=== PATIENT | female | born 1985 | race Caucasian/White ===

== ENCOUNTER 2017-03-28 18:43 | Emergency (ER) | payer BC ==
--- OUTSIDE RECORDS SUMMARY | 2017-03-28 18:49 | XMS REPORT ---
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 Rate 12 /min Height 68.75 inches 5'8.75" Weight 224.00 lb BMI (Body Mass Index) 33.3 kg/m2 Results Test Date Test Result H/L Range Note CBC Auto Diff 05/02/2016 White Blood Count 5.1 10^3/uL 3.5-10.8 Red Blood Count 4.61 10^6/uL 4.0-5.4 Hemoglobin 12.3 g/dL 12.0-16.0 Hematocrit 38 % 35-47 Mean Corpuscular Volume 82 fL 80-97 Mean Corpuscular Hemoglobin 27 pg 27-31 Mean Corpuscular HGB Conc 33 g/dL 31-36 Red Cell Distribution Width 18 % High 10.5-15 Platelet Count 148 10^3/uL Low 150-450 Mean Platelet Volume 10 um3 7.4-10.4 Abs Neutrophils 2.5 10^3/uL 1.5-7.7 Abs Lymphocytes 1.6 10^3/uL 1.0-4.8 Abs Monocytes 0.7 10^3/uL 0-0.8 Abs Eosinophils 0.2 10^3/uL 0-0.6 Abs Basophils 0 10^3/uL 0-0.2 Abs Nucleated RBC 0 10^3/uL Granulocyte % 50.1 % 38-83 Lymphocyte % 32.5 % 25-47 Monocyte % 13.5 % High 1-9 Eosinophil % 3.5 % 0-6 Basophil % 0.4 % 0-2 Nucleated Red Blood Cells % 0.1 Basic Metabolic Panel 05/02/2016 Sodium 137 mmol/L 133-145 Potassium 3.9 mmol/L 3.5-5.0 Chloride 104 mmol/L 101-111 Co2 Carbon Dioxide 23 mmol/L 22-32 Anion Gap 10 mmol/L 2-11 Glucose 82 mg/dL 70-100 Blood Urea Nitrogen 11 mg/dL 6-24 Creatinine 0.67 mg/dL 0.51-0.95 BUN/Creatinine Ratio 16.4 8-20 Calcium 8.8 mg/dL 8.6-10.3 Egfr Non- 101.4 >60 Egfr 130.4 >60 1 CBC No Diff 03/07/2016 White Blood Count 8.3 10^3/uL 3.5-10.8 2 Red Blood Count 4.63 10^6/uL 4.0-5.4 2 Hemoglobin 12.4 g/dL 12.0-16.0 2 Hematocrit 38 % 35-47 2 Mean Corpuscular Volume 82 fL 80-97 2 Mean Corpuscular Hemoglobin 27 pg 27-31 2 Mean Corpuscular HGB Conc 33 g/dL 31-36 2 Red Cell Distribution Width 14 % 10.5-15 2 Platelet Count 244 10^3/uL 150-450 2 Mean Platelet Volume 9 um3 7.4-10.4 2 Basic Metabolic Panel 03/07/2016 Sodium 134 mmol/L 133-145 2 Potassium 4.2 mmol/L 3.5-5.0 2 Chloride 99 mmol/L Low 101-111 2 Co2 Carbon Dioxide 27 mmol/L 22-32 2 Anion Gap 8 mmol/L 2-11 2 Glucose 83 mg/dL 70-100 2 Blood Urea Nitrogen 16 mg/dL 6-24 2 Creatinine 0.78 mg/dL 0.51-0.95 2 BUN/Creatinine Ratio 20.5 High 8-20 2 Calcium 9.6 mg/dL 8.6-10.3 2 Egfr Non- 85.1 >60 2 Egfr 109.4 >60 2, 3 Laboratory test finding 01/23/2016 Clotest SEE RESULT BELOW 4 CBC Electronic (Fma) 02/14/2013 WBC 5.9 3.6-9.6 RBC 4.11 3.90-5.70 Hemoglobin (Fma/CMC/CTX) 12.1 g/dL 12.1 - 17.2 Hematocrit (Fma/CMC/CTX) 36.4 % 36.1 - 50.3 Platelets 202 10^3/ul 150-400 Lymph% 30.5 20.5-51.1 Mixed% 4.1 Neutrophils % 65.4 Mean Corpuscular Vol 88 82.2-97.4 Mean Corpuscular Hemoglobin 29.5 27.6-33.3 Mean Corpuscular Hemo Concen 33.4 32.0-36.0 RDW 14.0 High 11.6-13.7 Mean Platelet Volume 7.2 6.5-11.0 Ebv Acute Infection Abs 02/14/2013 Ebv Ab Vca, IgM <0.2 AI 0.0-0.8 5 Ebv Early Antigen Ab, IgG 4.3 AI High 0.0-0.8 6 Ebv Ab Vca, IgG >8.0 AI High 0.0-0.8 7 Ebv Nuclear Antigen Ab, IgG >8.0 AI High 0.0-0.8 8 Interpretation: SEE NOTE 9 CMV Abs Igg/Igm 02/14/2013 CMV Ab, IgG (Cytomegalovirus) <0.9 index 0.0-0.8 10 CMV Ab, IgM Cytomegalovirus <0.9 index 0.0-0.8 11 Lyme Igg/M W/RFX West 02/14/2013 Lyme IgG/IgM Ab <0.91 index 0.00- 0.90 12 Lyme Disease Ab, Quant, IgM <0.91 index 0.00-0.90 13 Laboratory test finding 02/14/2013 B12 982 pg/mL 230-1050 Free T4 0.87 ng/dL 0.75-1.54 Free T3 2.55 pg/mL 2.00-4.90 Iron 49 g/dL Low 60-150 14 TSH 3.52 mIU/L 0.50-6.00 Comprehensive Metabolic Prof 02/14/2013 Albumin 4.2 g/dL 3.8-5.5 Alk. Phos. 74 U/L 30-110 Alt (SGPT) 24 U/L 7-35 Ast (Sgot) 24 U/L 5-34 BUN 18 mg/dL 6-26 Calcium 9.0 mg/dL 8.6-10.2 Chloride 100 mEq/L 94-112 Creatinine 0.9 mg/dL 0.6-1.4 Carbon Dioxide 26 mEq/L 21-32 Glucose 96 mg/dL 70-105 Sodium 138 mEq/L 134-149 Total Bilirubin 0.2 mg/dL 0.2-1.3 Total Protein 6.8 g/dL 6.3-8.1 Potassium 4.4 mEq/L 3.6-5.5 Globulin 2.5 g/dL 2.0-4.8 A/G Ratio 1.7 Calc 0.6-2.3 BUN/Creat Ratio 21.4 Calc 8.0-36.0 Ua - Non Micro (Fma) 12/06/2011 Appearance CLEAR Color YELLOW Glucose NEG Bilirubin NEG Ketones NEG SP Grav 1.020 Blood NEG PH 8.5 Protein NEG Urobil 0.2 Nitrite NEG Leukocytes (Fma/CMC/Centrex) NEG Laboratory test finding 10/29/2011 Monospot (Fma/Centrex) neg Laboratory test finding 10/27/2011 Quickstrep negative Negative Throat - Beta Strep Fma negative@48hrs Helico Pylori 08/14/2011 M <SEE 15 Antigen- Stool NOTE> Celiac Disease 08/03/2011 Deamidated Gliadin 7 units 0-19 16 Comp PNL Abs, IgA Deamidated Gliadin Abs, IgG 2 units 0-19 17 t-Transglutaminase (tTG) IgA <2 U/mL 0-3 18 t-Transglutaminase (tTG) IgG <2 U/mL 0-5 19 Endomysial Antibody IgA Negative Negative Immunoglobulin A, Qn, Serum 320 mg/dL 70-400 Laboratory test finding 08/03/2011 Vitamin D, 25 Oh 59.5 ng/mL 30.0- 100.0 20 Laboratory test finding 08/03/2011 TSH 1.88 mIU/L 0.50-6.00 Comprehensive Metabolic Prof 07/23/2011 Albumin 4.7 g/dL 3.8-5.5 Alk. Phos. 89 U/L 30-110 Alt (SGPT) 24 U/L 7-35 Ast (Sgot) 23 U/L 5-34 BUN 13 mg/dL 6-26 Calcium 9.1 mg/dL 8.6-10.2 Chloride 100 mEq/L 94-112 Creatinine 0.8 mg/dL 0.6-1.4 Carbon Dioxide 25 mEq/L 21-32 Glucose 94 mg/dL 70-105 Sodium 138 mEq/L 134-149 Total Bilirubin 0.6 mg/dL 0.2-1.3 Total Protein 7.1 g/dL 6.3-8.1 Potassium 3.9 mEq/L 3.6-5.5 Globulin 2.4 g/dL 2.0-4.8 A/G Ratio 2.0 Calc 0.6-2.2 BUN/Creat Ratio 16.6 Calc 8.0-36.0 Laboratory test finding 07/23/2011 Amylase 50 U/L 20-105 Laboratory test finding 07/23/2011 Sed Rate (Fma/CMC/Centrex) 2MM CBC Electronic (a) 07/23/2011 WBC 5.8 3.6-9.6 RBC 4.35 3.90-5.70 Hemoglobin (Fma/CMC/CTX) 12.8 g/dL 12.1 - 17.2 Hematocrit (Fma/CMC/CTX) 40.8 % 36.1 - 50.3 Platelets 337 10^3/ul 150-400 Lymph% 29.1 20.5-51.1 Mixed% 4.9 Neutrophils % 66.0 Mean Corpuscular Vol 94 82.2-97.4 Mean Corpuscular Hemoglobin 29.5 27.6-33.3 Mean Corpuscular Hemo Concen 31.5 Low 32.0-36.0 RDW 12.1 11.6-13.7 Mean Platelet Volume 6.9 6.5-11.0 Laboratory test finding 07/23/2011 Lipase 20 U/L 1-64 21 Throat-Beta Strept 10/01/2010 Throat-Beta Strep NF 22 Culture Laboratory test finding 03/13/2010 Urine (HCG) NEG Comprehensive Metabolic Prof 03/03/2010 Albumin 4.7 g/dL 3.8-5.5 Alk. Phos. 60 U/L 30-110 Alt (SGPT) 28 U/L 7-35 Ast (Sgot) 23 U/L 5-34 BUN 13 mg/dL 6-26 Calcium 9.7 mg/dL 8.6-10.2 Chloride 101 mEq/L 94-112 Creatinine 0.7 mg/dL 0.6-1.4 Carbon Dioxide 28 mEq/L 21-32 Glucose 95 mg/dL 70-105 Sodium 140 mEq/L 134-149 Total Bilirubin 0.6 mg/dL 0.2-1.3 Total Protein 7.3 g/dL 6.3-8.1 Potassium 4.3 mEq/L 3.6-5.5 Globulin 2.6 g/dL 2.0-4.8 A/G Ratio 1.8 Calc 0.6-2.2 BUN/Creat Ratio 18.5 Calc 8.0-36.0 Urine (Fma) 02/06/2010 SP Grav 1.015 Urine, (Fma/CMC/CTX) NEGATIVE Comprehensive Metabolic Prof 01/31/2010 Albumin 4.2 g/dL 3.8-5.5 Alk. Phos. 47 U/L 30-110 Alt (SGPT) 46 U/L High 7-35 Ast (Sgot) 35 U/L High 5-34 BUN 14 mg/dL 6-26 Calcium 9.1 mg/dL 8.6-10.2 Chloride 99 mEq/L 94-112 Creatinine 0.8 mg/dL 0.6-1.4 Carbon Dioxide 26 mEq/L 21-32 Glucose 105 mg/dL 70-105 Sodium 139 mEq/L 134-149 Total Bilirubin 0.6 mg/dL 0.2-1.3 Total Protein 6.8 g/dL 6.3-8.1 Potassium 4.1 mEq/L 3.6-5.5 Globulin 2.6 g/dL 2.0-4.8 A/G Ratio 1.6 Calc 0.6-2.2 BUN/Creat Ratio 17.2 Calc 8.0-36.0 CBC ([facility]) 01/31/2010 WBC 5.5 3.6-9.6 RBC 4.28 3.90-5.70 Hemoglobin (Fma/CMC/CTX) 12.9 g/dL 12.1 - 17.2 Hematocrit (Fma/CMC/CTX) 38.2 % 36.1 - 50.3 Platelets 177 10^3/ul 150-400 Lymph% 28.6 20.5-51.1 Mixed% 4.5 Neutrophils % 66.9 Mean Corpuscular Vol 89 82.2-97.4 Mean Corpuscular Hemoglobin 30.1 27.6-33.3 Mean Corpuscular Hemo Concen 33.7 33.0-36.0 RDW 12.2 11.6-13.7 Mean Platelet Volume 7.8 7.4-10.4 Ua - Non Micro (a) 01/31/2010 Appearance CLEAR Color YELLOW Glucose NEG Bilirubin NEG Ketones NEG SP Grav 1.015 Blood NEG PH 7.5 Protein NEG Urobil 0.2 E.U./dL Nitrite NEG Leukocytes (Fma/CMC/Centrex) NEG GC/Chlamydia Probe Or Urine(Ce 01/31/2010 Chlamydia Amplified Probe NEGATIVE GC Amplified Probe NEGATIVE Laboratory test finding 01/17/2010 Urine Culture No significant g <SEE 23 NOTE> Ua - Micro (a) 01/17/2010 Appearance CLEAR Color YELLOW Glucose, Urine (Fma/CMC/CTX) NEG Bilirubin NEG Ketones 15MG/DL SP Grav 1.020 Blood NEG PH 6.5 Protein NEG Urobil 0.2 Nitrite NEG Leukocytes (Fma/CMC/Centrex) NEG Hyaline - /Lpf Granular - /Lpf WBC (Fma,Centrex) 0-1 RBC 0-1 Mucus (Fma/CBC/Centrex) - /Lpf Epith RARE /Lpf Bacteria - /Hpf Amorphous (Fma/CMC/Centrex) - /Lpf Crystals, Fluid (Fma/CMC/CTX) - Z#Comments - Urinalysis 11/25/2009 Ua Color YELLOW Yellow Appearance-Urine CLEAR Clear Specific [place]-Ur 1.019 1.010-1.030 Esterase-Urine NEGATIVE Negative Nitrite NEGATIVE Negative Qaqcgkqcxyqn-Ah-SAV NEGATIVE Negative Protein-Urine NEGATIVE Negative PH-Urine 6.5 5-9 Blood-Urine NEGATIVE Negative Ketones-Urine NEGATIVE Negative Bilirubin-Ur NEGATIVE Negative Glucose-Urine NEGATIVE Negative Laboratory test finding 11/25/2009 Erythrocyte Sed Rate 14 MM/HR 0-15 CBC With Electronic Diff 11/25/2009 White Blood Count 9.6 CUMM 4.8-10.8 Red Cell Count 4.23 CUMM 4.2-5.4 Hemoglobin 13.2 g/dL 12.0-16.0 Hematocrit 38 % 35-47 Mean Corpuscular Volume 90 um3 79-97 Mean Corpuscular Hemoglob 31 pg 27-31 Mean Corpuscular HGB Cone 35 g/dL 32-36 Redcell Distribution WDTH 13 % 10.5-15 Platelet Count 208 CUMM 150-450 Mean Platelet Volume 7.1 um3 Low 7.4-10.4 Gran % 69.1 % 38-83 Lymph % 23.6 % Low 25-47 Mononuclear % 5.3 % 1-9 Eosinophil % 0.7 % 0-6 Basophil % 1.3 % 0-2 Abs Lymphs 2.3 1.0-4.8 Abs Mononuclear 0.5 0-0.8 Absolute Neutrophil Count 6.6 1.5-7.7 Abs Eosinophils 0.1 0-0.6 Abs Basophils 0.1 0-0.2 Laboratory test finding 11/25/2009 C Reactive Protein 0.7 mg/dL High Less Than 0.5 Comp Metabolic Panel 11/25/2009 Sodium 135 mmol/L 135-145 Potassium 3.8 mmol/L 3.5-5.0 Chloride 105 mmol/L 101-111 Co2 (Carbon Dioxide) 26.0 mmol/L 22-32 Anion Gap 4.0 mmol/L 2-11 24 Glucose 95 mg/dL 70-100 25 BUN 17 mg/dL 6-24 Creatinine 0.61 mg/dL 0.50-1.40 One Over Creatinine 1.60 BUN/Creatinine Ratio 27.9 High 8-20 Calcium 8.6 mg/dL 8.1-9.9 26 Total Protein 7.1 GM/DL 6.2-8.1 Albumin 3.8 GM/DL 3.6-5.4 Globulin 3.3 GM/DL 2-4 Albumin/Globulin Ratio 1.2 1-3 Bilirubin Total 0.6 mg/dL 0.4-1.5 27 Alkaline Phosphatase 53 U/L 30-110 Alt (SGPT) 21 U/L 14-54 Ast (Sgot) 22 U/L 12-42 eGFR Non- 126.0 > 60 eGFR 152.5 > 60 28 Laboratory test finding 11/25/2009 PTT (Aptt) 27.8 25.15-38.53 29 Protime 11/25/2009 Inr 0.96 0.82-1.17 30 Protime 11.3 SEC 10.2-14.8 31 Laboratory test finding 11/25/2009 (HCG) Serum NEGATIVE Negative 32 (HCG) Urine 11/22/2009 Specific [place] 1.018 1.010-1.030 33 Urine NEGATIVE Negative 33, 34 Laboratory test finding 11/03/2009 Free T4 1.21 ng/dL 0.75-1.54 TSH 1.16 mIU/L 0.50-6.00 Comprehensive Metabolic Prof 11/03/2009 Albumin 4.4 g/dL 3.8-5.5 Alk. Phos. 53 U/L 30-110 Alt (SGPT) 25 U/L 7-35 Ast (Sgot) 19 U/L 5-34 BUN 15 mg/dL 6-26 Calcium 9.0 mg/dL 8.6-10.2 Chloride 101 mEq/L 94-112 Creatinine 0.7 mg/dL 0.6-1.4 Carbon Dioxide 24 mEq/L 21-32 Glucose 78 mg/dL 70-105 Sodium 141 mEq/L 134-149 Total Bilirubin 0.4 mg/dL 0.2-1.3 Total Protein 7.0 g/dL 6.3-8.1 Potassium 3.9 mEq/L 3.6-5.5 Globulin 2.6 g/dL 2.0-4.8 A/G Ratio 1.7 Calc 0.6-2.2 BUN/Creat Ratio 21.1 Calc 8.0-36.0 Laboratory test finding 05/02/2009 , Serum NEG Laboratory test finding 05/02/2009 Prolactin 10.2 ng/ml 35, 36 Laboratory test finding 05/02/2009 TSH 2.52 mIU/L 0.50-6.00 Basic Metabolic Profile 05/02/2009 BUN 16 mg/dL 6-26 Calcium 8.7 mg/dL 8.6-10.2 Chloride 105 mEq/L 94-112 Creatinine 0.9 mg/dL 0.6-1.4 Carbon Dioxide 27 mEq/L 21-32 Glucose 78 mg/dL 70-105 Sodium 140 mEq/L 134-149 Potassium 4.7 mEq/L 3.6-5.5 BUN/Creat Ratio 18.8 Calc 8.0-36.0 Ua - Non Micro (Fma) 12/17/2008 Appearance CLEAR Color YELLOW Glucose - Bilirubin - Ketones TRACE SP Grav 1.025 Blood - PH 6.0 Protein - Urobil 0.2 Nitrite - Leukocytes (Fma/CMC/Centrex) - 1 Because ethnic data is not always readily available, this report includes an eGFR for both -Americans and non- Americans. The National Kidney Disease Education Program (NKDEP) does not endorse the use of the MDRD equation for patients that are not between the ages of 18 and 70, are , have extremes of body size, muscle mass, or nutritional status, or are non- or non-. According to the National Kidney Foundation, irrespective of diagnosis, the stage of the disease is based on the level of kidney function: Stage Description GFR(mL/min/1.73 m(2)) 1 Kidney damage with normal or decreased GFR 90 2 Kidney damage with mild decrease in GFR 60-89 3 Moderate decrease in GFR 30-59 4 Severe decrease in GFR 15-29 5 Kidney failure <15 (or dialysis) 2 AA 03/20 3 Because ethnic data is not always readily available, this report includes an eGFR for both -Americans and non- Americans. The National Kidney Disease Education Program (NKDEP) does not endorse the use of the MDRD equation for patients that are not between the ages of 18 and 70, are , have extremes of body size, muscle mass, or nutritional status, or are non- or non-. According to the National Kidney Foundation, irrespective of diagnosis, the stage of the disease is based on the level of kidney function: Stage Description GFR(mL/min/1.73 m(2)) 1 Kidney damage with normal or decreased GFR 90 2 Kidney damage with mild decrease in GFR 60-89 3 Moderate decrease in GFR 30-59 4 Severe decrease in GFR 15-29 5 Kidney failure <15 (or dialysis) 4 SEE RESULT BELOW Name: ASHUTOSH CUNHA : [address]: Kevin Lawler MD Acct: [id number] Unit: [id number] AGE: 30 Location: ENDO Re01/23/16 SEX: F Status: REG REF SPEC: [id number] JOSE M: 01/23/16-[address] [facility] [address]: Kevin Lawler MD REQ: [id number] RECD: 01/23/16 STATUS: FATOUMATA NINA DR: Juan Almeida MD _ SOURCE: GAS ANTRUM SPDESC: ORDERED: Clotest Procedure Result Reported Site Clotest Final 01/24/16738 ML Clotest Negative * ML - MAIN LAB ([facility]) . END OF REPORT * ML=Testing performed at Main Lab [place] [address] Armand Lee M.D. Director [facility] # [id number] 5 Negative <0.9 Equivocal 0.9 - 1.0 Positive >1.0 6 Negative <0.9 Equivocal 0.9 - 1.0 Positive >1.0 7 Negative <0.9 Equivocal 0.9 - 1.0 Positive >1.0 8 Negative <0.9 Equivocal 0.9 - 1.0 Positive >1.0 9 EBV Interpretation Chart Interpretation VCA-IgM EA-IgG VCA-IgG NA-ABS Susceptible - - - - Acute Infection + +or- +or- - Convalescent Phase +or- +or- + + Chronic or Reactivated - + + +or- Old Infection - - +or- + + Antibody Present - Antibody Absent 10 Negative <0.9 Equivocal 0.9 - 1.0 Positive >1.0 11 Negative <0.9 Equivocal 0.9 - 1.0 Positive >1.0 12 Negative <0.91 Equivocal 0.91 - 1.09 Positive >1.09 Note: The CDC currently advises that Western blot testing be performed following all equivocal or positive EIA results. Final diagnosis should include appropriate clinical findings and a positive EIA which is also positive by Western blot. 13 Negative <0.91 Equivocal 0.91 - 1.09 Positive >1.09 Note: IgM levels may peak at 3-6 weeks post infection, then gradually decline. FDA currently advises that Western Blot testing be performed following all equivocal or positive EIA results. Final diagnosis should include appropriate clinical findings and a positive EIA which is also positive by Western Blot. 14 RESULT ABHILASH'Calvin 15 RUN DATE: 08/17/11 [facility] NMI LIVE PAGE 1 RUN TIME: 1158 Specimen Inquiry RUN USER: INTERFACE Name: ASHUTOSH CUNHA Status: REG REF Re08/14/11 Age/Sex: 26/F Unit#: [id number] Location: [facility] : 81 SPEC #: [id number] JOSE M: 08/14/11 STATUS: COMP REQ #: [id number] RECD: 08/14/[address] [facility] [address]: Xiomy Cage MD SOURCE: STOOL ENTR: 08/14/11-[address]: JETT: ORDERED: H. PYLORI AG QUERIES: MEDENT REQUISITION # [id number] Procedure Result Verified Site > HELICO PYLORI ANTIGEN- STOOL Final -1158 ML HELICOBACTER PYLORI AG, F NEGATIVE Test performed by: [facility] [address] [place] [id number] - [facility] State Permit #[id number] [address] [place] [id number] DEPARTMENT OF PATHOLOGY, [address] [place] [address] [facility] Permit #[id number] Armand Lee M.D. Director Julianna Fletcher M.D. Termite Inspector 16 Negative 0 - 19 Weak Positive 20 - 30 Moderate to Strong Positive >30 17 Negative 0 - 19 Weak Positive 20 - 30 Moderate to Strong Positive >30 18 Negative 0 - 3 Weak Positive 4 - 10 Positive >10 . Tissue Transglutaminase (tTG) has been identified as the endomysial antigen. Studies have demonstr- ated that endomysial IgA antibodies have over 99% specificity for gluten sensitive enteropathy. 19 Negative 0 - 5 Weak Positive 6 - 9 Positive >9 20 Vitamin D deficiency has been defined by the [place] of [employer] and an Endocrine Society practice guideline as a level of serum 25-OH vitamin D less than 20 ng/mL (1,2). The Endocrine Society went on to further define vitamin D insufficiency as a level between 21 and 29 ng/mL (2). 1. IOM ([place] of [employer]). 2010. Dietary reference intakes for calcium and D. [place]: The National Academies Press. 2. Foreign MF, Paula [place], Melvi LEE, et al. Evaluation, treatment, and prevention of vitamin D deficiency: an Endocrine Society clinical practice guideline. JCEM. 2010; 96(7):1911-30. 21 1SST 22 NEGATIVE FOR GROUP A BETA STREPTOCOCCUS 23 No significant growth. 24 Anion gap measurement may be of limited value in the presence of any alkalosis, especially in a combined acid base disorder. . 25 Note change in reference range as of 11/20/07. The change was based on recommendations from the [place] [employer]. 26 Please note change in reference range effective 07 . 27 A metabolite of Naproxen, O-desmethylnaproxen, has been shown to interfere with the [place] method for measuring total bilirubin. Samples from patients who have taken Naproxen have shown spurious elevation in total bilirubin levels. 28 Because ethnic data is not always readily available, this report includes an eGFR for both -Americans and non- Americans. The National Kidney Disease Education Program (NKDEP) does not endorse the use of the MDRD equation for patients that are not between the ages of 18 and 70, are , have extremes of body size, muscle mass, or nutritional status, or are non- or non-. According to the National Kidney Foundation, irrespective of diagnosis, the stage of the disease is based on the level of kidney function: Stage Description GFR(mL/min/1.73 m(2)) 1 Kidney damage with normal or decreased GFR 90 2 Kidney damage with mild decrease in GFR 60-89 3 Moderate decrease in GFR 30-59 4 Severe decrease in GFR 15-29 5 Kidney failure <15 (or dialysis) 29 PLEASE NOTE NEW REFERENCE RANGE EFFECTIVE 08. 30 Recommended INR for Patients on Oral Anticoagulants Prophylaxis 2.0 - 3.0 Treatment of thrombosis 2.0 - 3.0 Prevention of embolism 2.0 - 3.0 Prevention of embolism from prosthetic heart valves 2.5 - 3.5 31 DIAGNOSIS,TREATMENT,AND THERAPY MUST BE BASED ON THE INR VALUE ALONE. 32 If is still suspected, please repeat test after 48 to 72 hours. . 33 CALL RESULTS TO [phone] 34 If is still suspected, please repeat test after 48 to 72 hours. . 35 1 RED TOP TUBE SPUN POURED SERUM INTO TRANSPORT TUBE 36 . FEMALES: Non : 2.8-29.2 : 9.7-208.5 Postmenopausal : 1.8-20.3 MALES:................: 2.1-17.7 . Procedures Date CPT Code Description Status 01/11/2017 Mammogram Completed 04/05/2011 09061 Pulse Oximetry Completed Encounters Type Date Location Provider CPT E/M Dx Office Visit 10/16/2016 1:15p Main Office Isi Cedeno, [address] H92.01 Aflissy-C Office Visit 01/26/2016 3:30p [facility] Office ROZ Dodd 01945 E66.01 Office Visit 09/09/2015 11:30a [place] [address] H10.89 Office Visit 07/26/2015 1:00p [place] [address] J45.20 R23.8 J30.2 K21.9 M54.2 F33.1 E66.8 Office Visit 06/14/2015 7:20p Main Office Tariq Polk M.D. 62705 M26.60 Office Visit 02/02/2015 1:10p Main Office Rachid Kelsey M.D. 07862 H66.91 J06.9 Office Visit 09/30/2014 2:20p [facility] Office Juan Almeida M.D. 22502 719.43 Office Visit 09/08/2014 11:15a [place] [address] 719.43 Office Visit 04/21/2014 11:30a Main Office ROZ Dodd 80101 374.84 Office Visit 02/04/2014 2:30p Main Office Airam Hali Sullivan-C 54125 311 724.5 723.1 530.81 346.90 465.9 Office Visit 03/30/2013 3:30p [facility] Office ROZ Dodd 75409 461.0 723.1 Office Visit 02/14/2013 11:00a Main Office ROZ Dodd 89665 578.1 780.79 Office Visit 10/22/2012 3:30p Main Office Hali Birch-C 25533 723.1 Office Visit 09/11/2012 10:00a Main Office Hali Birch-C 44961 784.0 Office Visit 12/27/2011 9:45a Main Office Harmony Ann, [facility] 31451 724.5 723.1 Office Visit 12/08/2011 10:30a Main Office Hali Shirley-C 32589 V74.1 V70.5 Office Visit 12/06/2011 11:00a [facility] Office Hali Shirley-C 95511 V70.5 v74.1 v04.81 Office Visit 10/29/2011 10:10a Main Office Rachid Kelsey M.D. 66883 462 Office Visit 10/27/2011 9:45a Main Office Hali Birch-C 05202 462 Office Visit 10/18/2011 3:15p [facility] Office Harmony Ann, [facility] 89921 461.9 Office Visit 10/01/2011 4:40p [facility] Office Xiomy Cage M.D. 91356 789.06 729.1 296.32 Office Visit 08/20/2011 6:50p Main Office Mell Aguilar M.D. 08643 381.29 Office Visit 08/03/2011 9:40a Main Office Xiomy Cage M.D. 95753 789.06 268.9 278.02 Office Visit 07/23/2011 3:00p [facility] Xiomy Cage M.D. 56944 789.07 Office Visit 04/05/2011 2:00p [facility] Office Airam Sullivan Romariolissy-C 27652 461.9 Office Visit 12/13/2010 2:00p Main Office Xiomy Cage M.D. 80164 V04.81 724.5 296.32 729.1 305.1 Office Visit 10/25/2010 1:00p Main Office Xiomy Cage M.D. 07280 724.5 296.32 305.1 729.1 Office Visit 07/14/2010 9:20a Main Office Xiomy Cage M.D. 61131 296.32 724.5 Office Visit 05/05/2010 11:00a Main Office Xiomy aCge M.D. 28173 724.5 296.32 Office Visit 03/28/2010 1:40p [facility] Office Rachid Kelsey M.D. 05802 461.0 Office Visit 03/13/2010 11:00a [facility] Office Xiomy Cage M.D. 45864 724.5 794.8 995.3 789.07 Office Visit 03/03/2010 10:10a Main Office Xiomy Cage M.D. 50087 724.5 794.8 V25.09 995.3 296.32 Office Visit 02/06/2010 2:20p [facility] Office Xiomy Cage M.D. 73860 724.5 296.32 789.09 794.8 278.02 Office Visit 01/31/2010 9:50a Main Office Xiomy Cage M.D. 05221 789.09 Office Visit 01/17/2010 10:40a [facility] Office Gallo Land M.D. 43537 461.0 788.41 724.5 Office Visit 12/24/2009 10:00a Main Office Isi Cedeno, lissy-Primo 17228 V04.81 v04.81 461.9 724.5 703.0 Office Visit 12/14/2009 11:00a Main Office Xiomy Cage M.D. 20540 724.5 703.0 782.2 278.02 Office Visit 11/29/2009 12:00p Main Office Xiomy Cage M.D. 60641 724.5 703.0 782.2 564.00 305.1 Office Visit 11/03/2009 11:40a [facility] Office Juan Almeida M.D. 66711 783.5 477.9 305.1 278.02 311 Office Visit 07/08/2009 11:10a [facility] Mell Aguilar M.D. 70935 786.2 Office Visit 06/27/2009 8:30a [facility] Xiomy Cage M.D. 32973 724.5 Office Visit 06/02/2009 11:30a [facility] Harmony Ann, [facility] 83642 724.5 Office Visit 05/19/2009 9:45a [facility] Harmony Ann, [facility] 53340 724.5 Office Visit 05/13/2009 1:15p Main Office Harmony Ann, [facility] 12794 463 724.5 Office Visit 05/06/2009 10:30a Main Office Harmony Ann, [facility] 73633 463 724.5 Office Visit 05/02/2009 1:30p [facility] Xiomy Cage M.D. 20408 724.5 626.0 Office Visit 03/23/2009 3:20p Main Office Mell Aguilar M.D. 58518 616.10 381.29 Office Visit 03/03/2009 1:15p [facility] Harmony Haysgail [facility] 93459 461.9 Office Visit 12/17/2008 8:00a Main Office Xiomy Cage M.D. 10126 V70.0 278.02 305.1 311 Office Visit 10/26/2008 10:30a [facility] Misbah Birch 50001 V70.3 311 Plan of Care 02/27/2017 - Clara Cunha, NPJ30.2 Other seasonal allergic rhinitisComments :Call MICHELLE if condition changes/worsens in any wayF33.1 Major depressive disorder, recurrent, moderate
[2017-03-28 18:51] VITALS: BP 105/65
[2017-03-28] MEDS ORDERED: Lidocaine 2% PF * 5 ML VIAL IV ONE (19:03)
[2017-03-28] MEDS ORDERED: Tetan/Diph/Pertus SYR(Tdap)* 0.5 ML SYR(BOOSTRIX) use SYR IM ONE (19:04)
--- NOTE | 2017-03-28 19:40 | UC ---
Laceration HPI - HPI Summary HPI Summary: Pt presents to urgent care with laceration dorsum left great toe. Pt states was walking in kitchen and was cut with piece of glass. Pt states pulled from wound . Pt not concerned there is a foreign body. Reports diffuse paresthesia No anticpagulation. Not immunocompromised. Unknown last tetanus Pt's medications reviewed this visit - History Of Current Complaint Chief Complaint: UCLaceration Stated Complaint: FOOT LACERATION Time Seen by Provider: 03/28/17 18:44 Hx Obtained From: Patient Hx Last Menstrual Period: 03/20/17 Laceration Location: Toe Mechanism Of Injury: Sharp Trauma Onset/Duration: Sudden Onset Severity: Mild Pain Intensity: 2 Pain Scale Used: 0-10 Numeric Aggravating Factors: Nothing - Allergies/Home Medications Allergies/Adverse Reactions: Allergies Allergy/AdvReac Type Severity Reaction Status Date / Time Penicillins Allergy Hives Verified 03/28/17 18:51 PMH/Surg Hx/FS Hx/Imm Hx Previously Healthy: Yes - Surgical History Surgical History: Yes Surgery Procedure, Year, and Place: LEEP TO CERVIX X2 Bariatric surgery - Family History Known Family History: Negative: Cardiac Disease, Hypertension, Diabetes - Social History Occupation: Employed Full-time Lives: With Family Alcohol Use: Occasionally Alcohol Amount: 0-2 PER WEEK Substance Use Type: None Smoking Status (MU): Former Smoker Type: Cigarettes Amount Used/How Often: 1/2 PACK A DAY Have You Smoked in the Last Year: No When Did the Patient Quit Smoking/Using Tobacco: 2.5 yrs - Immunization History Most Recent Influenza Vaccination: 2014 Most Recent Tetanus Shot: UNKNOWN Most Recent Pneumonia Vaccination: NEVER Review of Systems Skin: Other - laceration left great toe All Other Systems Reviewed And Are Negative: Yes Physical Exam Triage Information Reviewed: Yes Appearance: Well-Appearing, No Pain Distress, Well-Nourished Vital Signs: Initial Vital Signs Temp 97.0 F 03/28/17 18:46 Pulse 97 03/28/17 18:46 Resp 20 03/28/17 18:46 BP 105/65 03/28/17 18:46 Pulse Ox 99 03/28/17 18:46 Vital Signs Reviewed: Yes Eyes: Positive: Conjunctiva Clear ENT: Positive: Hearing grossly normal Neck: Positive: Supple Respiratory: Positive: No respiratory distress, No accessory muscle use Cardiovascular: Positive: Other: - 2+ DP, PT CBT < 2 sec all toe digit Musculoskeletal Exam: Normal Musculoskeletal: Positive: Other: - + flex/ext ankle, toes + great toe extension Neurological: Positive: Other: - + gross sensation throughout foot Psychological Exam: Normal Skin: Positive: Other - Pt with 2cm laceration to dorsum left great toe - no active bleeding. 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 sutures placed - pt tolerated well. reviewed s/s infection. wound care. suture removal. APAP ( no motrin- pt bariatric surgery). tdap updated. post-op shoe - Differential Dx - Laceration/Wound Provider Diagnoses: laceration. tetanus booster Discharge - Discharge Plan Condition: Stable Disposition: HOME Patient Education Materials: Diphtheria/Pertussis/Tetanus Vaccine (By injection ), Laceration (ED) Referrals: Juan Almeida MD [Primary Care Provider] - Additional Instructions: - your stitches should come out in 8-10 days - you can return here, go to your Doctor or any urgent care center - okay to take tylenol every 6hours as needed for pain -Keep your wound clean and dry - no soaking for 24 hours. Then, okay for wound to get wet - pat dry, don't rub -apply a thin layer of antibiotic ointment (neosporin, polysporin) 2-3 times a day - when you have a cut, you will have a scar. To minimize scar formation - keep your wound clean - monitor for signs of infection - reddness, red streaking, odor, green drainage -Once sutures out - keep your wound out of direct sun (wear a hat or sun screen ) - it may take up to 8 months for your scar to reach its final state - okay to wear provided shoe to prevent rubbing on your sutures - you also received a tetanus booster today- your arm will likely be sore over the next 1-2 days- this is normal - Contact your doctor or return here with questions or concerns
== END 2017-03-28 19:50 | disposition home or self-care (01) ==
LOC: UCEAST 18:43
DX: S91.112A Laceration without foreign body of left great toe without damage to nail, initial encounter (principal); Z23 Encounter for immunization; W25.XXXA Contact with sharp glass, initial encounter; Y93.01 Activity, walking, marching and hiking; Y92.89 Other specified places as the place of occurrence of the external cause
CPT/HCPCS: 12001; 90471; 90715; 99211; G0463

== ENCOUNTER 2017-04-07 18:13 | Emergency (ER) | payer BC ==
--- NOTE | 2017-04-07 18:46 | UC ---
HPI Wound/Suture Re-check - HPI Summary HPI Summary: Had sutures on L great toe places 03/28/17; here for removal. No problems with sutures. - History Of Current Complaint Stated Complaint: REMOVAL OF STITCHES Time Seen by Provider: 04/07/17 18:43 Hx Obtained From: Patient Hx Last Menstrual Period: 03/22/17 Onset/Duration: Sudden Onset Severity: Moderate Procedure Type: sutures - Allergies/Home Medications Allergies/Adverse Reactions: Allergies Allergy/AdvReac Type Severity Reaction Status Date / Time Penicillins Allergy Hives Verified 04/07/17 18:45 PMH/Surg Hx/FS Hx/Imm Hx Endocrine History: Diabetes - pre-DM Respiratory History: Asthma - Surgical History Surgical History: Yes Surgery Procedure, Year, and Place: LEEP TO CERVIX X2 Bariatric surgery - Family History Known Family History: Negative: Cardiac Disease, Hypertension, Diabetes - Social History Lives: With Family Alcohol Use: Occasionally Alcohol Amount: 0-2 PER WEEK Substance Use Type: None Smoking Status (MU): Former Smoker Type: Cigarettes Amount Used/How Often: 1/2 PACK A DAY Have You Smoked in the Last Year: No When Did the Patient Quit Smoking/Using Tobacco: 2.5 yrs - Immunization History Most Recent Influenza Vaccination: 2014 Most Recent Tetanus Shot: UNKNOWN Most Recent Pneumonia Vaccination: NEVER Review of Systems Constitutional: Negative Skin: Other - lac to L great toe Eyes: Negative ENT: Negative Respiratory: Negative Cardiovascular: Negative Gastrointestinal: Negative Genitourinary: Negative Motor: Negative Neurovascular: Negative Musculoskeletal: Negative Neurological: Negative Psychological: Negative Is Patient Immunocompromised?: No All Other Systems Reviewed And Are Negative: Yes Physical Exam Triage Information Reviewed: Yes Appearance: Well-Appearing, No Pain Distress, Well-Nourished Vital Signs: Initial Vital Signs Temp 98 F 04/07/17 18:41 Pulse 96 04/07/17 18:41 Resp 15 04/07/17 18:41 Pulse Ox 100 04/07/17 18:41 Vital Signs Reviewed: Yes Eye Exam: Normal Eyes: Positive: Conjunctiva Clear ENT Exam: Normal ENT: Positive: Normal ENT inspection, Hearing grossly normal, Pharynx normal, TMs normal Dental Exam: Normal Neck exam: Normal Respiratory Exam: Normal Respiratory: Positive: Chest non-tender, Lungs clear, Normal breath sounds, No respiratory distress, No accessory muscle use Cardiovascular Exam: Normal Cardiovascular: Positive: RRR, No Murmur Musculoskeletal Exam: Normal Musculoskeletal: Positive: ROM Intact Neurological Exam: Normal Psychological Exam: Normal Skin Exam: Other - 5 sutures removed from L great toe; wound well-approximated, no bleeding. Steristrips applied. Course/Dx - Differential Dx - Laceration/Wound Provider Diagnoses: suture removal L foot Discharge - Discharge Plan Condition: Stable Disposition: HOME Patient Education Materials: Stitches Removal (ED) Referrals: Juan Almeida MD [Primary Care Provider] - Additional Instructions: Your skin should continue to heal well; come back if you have new injury or bleeding.
== END 2017-04-07 19:10 | disposition home or self-care (01) ==
LOC: UCEAST 18:13
DX: S91.112D Laceration without foreign body of left great toe without damage to nail, subsequent encounter (principal); Z72.89 Other problems related to lifestyle; Z87.891 Personal history of nicotine dependence; X58.XXXD Exposure to other specified factors, subsequent encounter; Y92.9 Unspecified place or not applicable
CPT/HCPCS: 99211; G0463